=== PATIENT | female | born 2000 | race African-American/Black ===

== ENCOUNTER 2021-06-17 19:25 | Emergency (ER) | payer OTHER ==
[~2021-06-17] VITALS: Ht 157.5 cm; Wt 68.0 kg
[2021-06-17] MEDS ORDERED: NOHOMEMEDICATIONS (19:43)
[2021-06-17 20:49] VITALS: BP 115/75
== END 2021-06-17 20:49 | disposition home or self-care (01) ==
LOC: ER 19:25
DX: M25.511 Pain in right shoulder (principal)